=== PATIENT | female | born 1995 | race Caucasian/White ===

== ENCOUNTER 2016-03-29 22:40 | Emergency (ER) | payer MEDICAID ==
[2016-03-30] MEDS ORDERED: humuLIN REG INSULIN ONE (02:28)
[2016-03-30] MEDS ORDERED: ONDANSETRON 4 MG VIAL ONE (02:28)
[2016-03-30] MEDS ORDERED: MORPHINE 4 MG/ML SYR ONE (02:28)
[2016-03-30] MEDS ORDERED: KETOROLAC 60 MG/2 ML VIAL IM ONE (02:28)
[2016-03-30] MEDS ORDERED: SODIUM CHLORIDE 0.9% 1,000 ML ONE (02:29)
[2016-03-30] MEDS ORDERED: AZITHROMYCIN 250 MG TAB ONE (04:26)
== END 2016-03-30 04:33 | disposition home or self-care (01) ==
LOC: ER 22:40
DX: A56.09 Other chlamydial infection of lower genitourinary tract (principal)
CPT/HCPCS: 36415; 76830; 80053; 81003; 82947; 83690; 84703; 85025; 87088; 87491; 87591; 87800; 96361; 96372; 96374; 96375